=== PATIENT | male | born 1965 | race Caucasian/White ===

== ENCOUNTER 2016-05-23 13:27 | Emergency (ER) | payer OTHER ==
[2016-05-23 15:58] VITALS: BP 138/89
--- NOTE | 2016-05-23 16:30 | UC ---
Throat Pain/Nasal Manuel HPI - HPI Summary HPI Summary: fevers, chills, facial pain, cough, - History of Current Complaint Chief Complaint: UCGeneralIllness Stated Complaint: FLU SYMPTOMS Time Seen by Provider: 05/23/16 16:00 Hx Obtained From: Patient Onset/Duration: Sudden Onset, Lasting Days - 4, Still Present Severity: Moderate Pain Intensity: 6 Pain Scale Used: 0-10 Numeric Cough: Nonproductive Associated Signs & Symptoms: Positive: Sinus Discomfort, Nasal Discharge, Fever - Allergies/Home Medications Allergies/Adverse Reactions: Allergies Allergy/AdvReac Type Severity Reaction Status Date / Time No Known Allergies Allergy Verified 03/10/13 11:50 Home Medications: Home Medications Esomeprazole Magnesium [Nexium 24Hr] 20 mg PO DAILY 05/23/16 [History Confirmed 05/23/16] Metoprolol Succinate [Toprol Xl] 25 mg PO BID 05/23/16 [History Confirmed ] PMH/Surg Hx/FS Hx/Imm Hx Previously Healthy: No Endocrine History Of: Denies: Diabetes, Thyroid Disease Cardiovascular History Of: Reports: Cardiac Disorders - cardiomyopathy-HTN med for tx Denies: Hypertension Respiratory History Of: Denies: COPD, Asthma GI/ History Of: Denies: Ulcer - Surgical History Surgical History: Yes Surgery Procedure, Year, and Place: Hernia Repair - Family History Family History: no cardiovascular issues in family lineage - Social History Occupation: Employed Full-time Lives: With Family Alcohol Use: Daily Substance Use Type: None Smoking Status (MU): Former Smoker Review of Systems Constitutional: Fever, Chills, Fatigue Skin: Negative Eyes: Eye Redness ENT: Sore Throat, Nasal Discharge Respiratory: Cough Cardiovascular: Negative Gastrointestinal: Negative Genitourinary: Negative Motor: Negative Neurovascular: Negative Musculoskeletal: Negative Neurological: Headache Psychological: Negative All Other Systems Reviewed And Are Negative: Yes Physical Exam Triage Information Reviewed: Yes Appearance: Well-Nourished, Ill-Appearing - mild, Pain Distress - mild Vital Signs: Initial Vital Signs Temp 100.9 F 05/23/16 15:51 Pulse 79 05/23/16 15:51 Resp 16 05/23/16 15:51 BP 138/89 05/23/16 15:51 Pulse Ox 97 05/23/16 15:51 Vital Signs Reviewed: Yes Eye Exam: Normal Eyes: Positive: Conjunctiva Clear ENT Exam: Other ENT: Positive: Hearing grossly normal, Pharynx normal, Nasal congestion, Nasal drainage, TMs normal. Negative: Tonsillar swelling, Tonsillar exudate, Trismus , Muffled/hoarse voice Dental Exam: Normal Neck exam: Normal Neck: Positive: Supple, Nontender Respiratory Exam: Normal Respiratory: Positive: Chest non-tender, Lungs clear, Normal breath sounds, No respiratory distress, No accessory muscle use Cardiovascular Exam: Normal Cardiovascular: Positive: RRR, No Murmur, Pulses Normal, Brisk Capillary Refill Musculoskeletal Exam: Normal Musculoskeletal: Positive: Strength Intact, ROM Intact, No Edema Neurological Exam: Normal Neurological: Positive: Alert, Muscle Tone Normal Psychological Exam: Normal Skin Exam: Normal Throat Pain/Nasal Course/Dx - Course Course Of Treatment: augmentin, flonase, albuterol, increase fluids follow with pcp - Differential Dx/Diagnosis Differential Diagnosis/HQI/PQRI: Otitis Media, Pharyngitis, Sinusitis, URI Provider Diagnoses: Sinusitis with bronchospastic cough Discharge - Discharge Plan Condition: Stable Disposition: HOME Prescriptions: Albuterol HFA INHALER* [Ventolin HFA Inhaler*] 2 puff INH Q6H PRN #1 mdi PRN Reason: cough/wheeze Amoxicillin/Clavulanate TAB* [Augmentin TAB 875*] 875 mg PO BID #20 tab Fluticasone NASAL SPRAY 50MCG* [Flonase NASAL SPRAY 50MCG*] 2 spray BOTH NARES DAILY #1 btl Patient Education Materials: Sinusitis (ED), How to Use a Metered-Dose Inhaler (ED), How to Use Nasal [place] (ED) Referrals: Regan Adkins MD [Primary Care Provider] - 5 Days
== END 2016-05-23 16:42 | disposition home or self-care (01) ==
LOC: UCCORT 13:27
DX: J32.9 Chronic sinusitis, unspecified (principal); J98.01 Acute bronchospasm; I11.9 Hypertensive heart disease without heart failure; I42.9 Cardiomyopathy, unspecified; Z87.891 Personal history of nicotine dependence
CPT/HCPCS: 87502; 99212; G0463

== ENCOUNTER 2017-07-12 11:47 | Emergency (ER) | payer OTHER ==
[2017-07-12 13:16] VITALS: BP 131/80
--- NOTE | 2017-07-12 13:30 | UC ---
UC General HPI - HPI Summary HPI Summary: PT IS C/O A 1-2 MONTH WITH DIFFICULTY MOVING BOWELS. HE DESCRIBES THIS STRAINING AND GOING 4-5 TIMES DAILY. HE NOTES THE MOVEMENTS ARE SOMETIMES SHORT OR ROUND. SOMETIMES. HE WILL SEE A LITTLE RED BLOOD ON SURFACE AND TISSUE WELL. HE DENIES BLACK BM'S BUT STATES BLOOD SOMETIMES LOOKS DARK. HE ADMITS TO STRAINING WITH BMS'S BUT HAS NO RECTAL OR ABDOMINAL PAIN. HE DOES REPORT ? HEMORRHOIDS. HE HAS SELF TX WITH OTC STOOL SOFTNER. HE HAS NEVER HAD A COLONOSCOPY. HE DENIES HX/[facility] BOWEL PATHOLOGY/CA. - History of Current Complaint Chief Complaint: UCGI Stated Complaint: BOWEL ISSUES Time Seen by Provider: 07/12/17 13:18 Hx Obtained From: Patient, Family/Import/Export Analyst Onset/Duration: Gradual Onset Timing: Constant Pain Intensity: 0 Associated Signs & Symptoms: Negative: Abdominal Pain, Anticoagulation Therapy, Diarrhea, Melena, Nausea - Allergy/Home Medications Allergies/Adverse Reactions: Allergies Allergy/AdvReac Type Severity Reaction Status Date / Time No Known Allergies Allergy Verified 07/12/17 13:08 Home Medications: Home Medications Losartan TAB* [Cozaar TAB*] 25 mg PO DAILY 07/12/17 [History Confirmed 07/12/17] Marcelino Men 2 tab PO DAILY 07/12/17 [History] PMH/Surg Hx/FS Hx/Imm Hx - Additional Past Medical History Additional PMH: cardiomyopathy - Surgical History Surgical History: Yes Surgery Procedure, Year, and Place: Hernia Repair - Family History Known Family History: Positive: Other - father had prostate ca with mets, mom copd Family History: no cardiovascular issues in family lineage - Social History Occupation: Employed Full-time Lives: With Family Alcohol Use: Daily Alcohol Amount: 4-6 beers Substance Use Type: Marijuana Substance Use Comment - Amount & Last Used: daily Smoking Status (MU): Former Smoker When Did the Patient Quit Smoking/Using Tobacco: 2014 - Immunization History Vaccination Up to Date: Yes Review of Systems Constitutional: Negative Skin: Negative Eyes: Negative ENT: Negative Respiratory: Negative Cardiovascular: Negative Gastrointestinal: Other - bm changes and rectal bleeding Genitourinary: Negative Motor: Negative Neurovascular: Negative Musculoskeletal: Negative Neurological: Negative Psychological: Negative Is Patient Immunocompromised?: No All Other Systems Reviewed And Are Negative: Yes Physical Exam Triage Information Reviewed: Yes Appearance: Well-Appearing Vital Signs: Initial Vital Signs Temp 98.7 F 07/12/17 13:10 Pulse 56 07/12/17 13:10 Resp 18 07/12/17 13:10 BP 131/80 07/12/17 13:10 Pulse Ox 100 07/12/17 13:10 Vital Signs Reviewed: Yes Eyes: Positive: Conjunctiva Clear ENT: Positive: Pharynx normal, TMs normal. Negative: Nasal congestion, Nasal drainage Neck: Positive: Supple, Nontender, No Lymphadenopathy Respiratory: Positive: Lungs clear, Normal breath sounds Cardiovascular: Positive: RRR, No Murmur Abdomen Description: Positive: Nontender, No Organomegaly, Soft, Other: - Rectal : no swelling or fissures. stool brown with scant red blood(guiac+). non tender rectal exam without mass. prostate: no nodules appreciated/smooth.. Negative: Distended, Guarding Diagnostics - Laboratory Diagnostic Studies Completed/Ordered: stool guiac+ Course/Dx - Course Course Of Treatment: change in bowel habits. rectal bleeding. no acute abdomen or s/s's of critical anemia. pt had recent cbc (within past week)by cardiology and notes that was normal. will refer to gastroenterology for f/u kyra. pt advised to call today and of importance to exclude pathology suck as CA. he agrees to f/u as directed. - Differential Dx - Multi-Symptom Provider Diagnoses: change in bowel habits. rectal bleeding. Discharge - Discharge Plan Condition: Stable Disposition: HOME Patient Education Materials: Rectal Bleeding (ED) Referrals: Rajesh Millan MD [Medical Doctor] - As Soon As Possible PERI Wallis [Primary Care Provider] - As Soon As Possible Additional Instructions: CALL THE GI GROUP TODAY FOR NEXT AVAILABLE APPOINTMENT. ADVISE THEM OF RECTAL BLEEDING WITH ACUTE CHANGE IN BOWEL HABIT.
== END 2017-07-12 14:14 | disposition home or self-care (01) ==
LOC: UCCORT 11:47
DX: R19.4 Change in bowel habit (principal); K62.5 Hemorrhage of anus and rectum; I42.9 Cardiomyopathy, unspecified; Z87.891 Personal history of nicotine dependence
CPT/HCPCS: 82270; 99211; G0463